=== PATIENT | female | born 2000 | race Caucasian/White ===

== ENCOUNTER 2019-04-27 22:45 | Emergency (ER) | payer OTHER ==
[2019-04-27] MEDS ORDERED: Lidocaine 2% VISCOUS* 15 ML UDC PO ONE (23:18)
[2019-04-27] MEDS ORDERED: Acetaminophen TAB* 325 MG PO ONE (23:30)
[2019-04-27 23:40] LABS: Rapid Strep Molecular Negative (Negative)
[2019-04-27 23:49] LABS: Influenza A Molecular NEGATIVE (Negative); Influenza B Molecular NEGATIVE (Negative)
--- NOTE | 2019-04-28 00:21 | ED ---
Influenza-Like Illness - HPI Summary HPI Summary: Patient complains of fever, sore throat, body aches, headache, nausea, lower back pain 1 week. Seen at [facility] earlier in the week, tested positive for strep nongroup a, was not given antibiotics. Patient has been taking amoxicillin for the past 2 days that she had from a prior infection a year ago. Thus been taking Tamiflu for 1 day that she had from a year ago. Denies cough , SOB, CP, V/D, abdominal pain, change in urine, change in BM. Medical history is frequent strep throat. - History of Current Complaint Chief Complaint: EDFluSymptoms Time Seen by Provider: 04/27/19 23:16 Hx Obtained From: Patient Onset/Duration: Gradual Onset, Lasting Days Severity: Moderate Associated Signs & Symptoms: Fever, Myalgia, Sore Throat, Headache - Allergy/Home Medications Allergies/Adverse Reactions: Allergies Allergy/AdvReac Type Severity Reaction Status Date / Time clindamycin Allergy Vomiting Verified 04/27/19 22:48 PMH/Surg Hx/FS Hx/Imm Hx Endocrine/Hematology History: Denies: Hx Anticoagulant Therapy Cardiovascular History: Denies: Hx Pacemaker/ICD History: Denies: Hx Dialysis Sensory History: Denies: Hx Eye Prosthesis Opthamlomology History: Denies: Hx Legally Blind EENT History: Denies: Hx Deafness Neurological History: Denies: Hx Dementia Infectious Disease History: No Infectious Disease History: Denies: Traveled Outside the [place] in Last 30 Days - Family History Known Family History: Positive: Non-Contributory - Social History Alcohol Use: Occasionally Substance Use Type: Reports: None Smoking Status (MU): Never Smoked Tobacco Review of Systems Positive: Fever Eyes: Negative Positive: Sore Throat Cardiovascular: Negative Respiratory: Negative Gastrointestinal: Negative Genitourinary: Negative Positive: Myalgia Skin: Negative Neurological: Negative Psychological: Normal All Other Systems Reviewed And Are Negative: Yes Physical Exam Triage Information Reviewed: Yes Vital Signs On Initial Exam: Initial Vitals Temp Pulse Resp BP Pulse Ox 102.5 F 125 18 130/87 99 04/27/19 22:49 04/27/19 22:49 04/27/19 22:49 04/27/19 22:49 04/27/19 22:49 Vital Signs Reviewed: Yes Appearance: Positive: Well-Appearing Skin: Positive: Warm Head/Face: Positive: Normal Head/Face Inspection Eyes: Positive: Normal ENT: Positive: Pharyngeal erythema, TMs normal, Tonsillar swelling, Uvula midline. Negative: Tonsillar exudate, Trismus, Muffled voice, Hoarse voice Neck: Positive: Supple Respiratory/Lung Sounds: Positive: Clear to Auscultation Cardiovascular: Positive: Normal Abdomen Description: Positive: Nontender Musculoskeletal: Positive: Normal Neurological: Positive: Normal Psychiatric: Positive: Normal AVPU Assessment: Alert - [place] Coma Scale Best Eye Response: 4 - Spontaneous Best Motor Response: 6 - Obeys Commands Best Verbal Response: 5 - Oriented Coma Scale Total: 15 Procedures - Sedation Patient Received Moderate/Deep Sedation with Procedure: No Diagnostics - Vital Signs Vital Signs Temp Pulse Resp BP Pulse Ox 04/27/19 22:49 102.5 F 125 18 130/87 99 - Laboratory Lab Results: Lab Results 04/27/19 04/27/19 Range/Units 23:25 23:25 Influenza A (Rapid) Negative (Negative) Influenza B (Rapid) Negative (Negative) Group A Strep Rapid Negative (Negative) Result Diagrams: 04/28/19 00:00 04/28/19 00:00 Lab Statement: Any lab studies that have been ordered have been reviewed, and results considered in the medical decision making process. Flu Symptom Course/Dx - Course Course Of Treatment: Patient complains of fever, sore throat, body aches, headache, nausea, lower back pain 1 week. Seen at [facility] earlier in the week, tested positive for strep nongroup a, was not given antibiotics. Patient has been taking amoxicillin for the past 2 days that she had from a prior infection a year ago. Thus been taking Tamiflu for 1 day that she had from a year ago. Denies cough, SOB, CP, V/D, abdominal pain, change in urine, change in BM. Medical history is frequent strep throat. Initial temperature 102. Heart rate 125. Both resolved with antipyretics. Vital signs otherwise unremarkable. CRP 84. [place] negative. Flu negative. Strep a negative. Symptoms improved with lidocaine. Rx for lidocaine and Augmentin. - Diagnoses Provider Diagnoses: Pharyngitis Discharge ED - Sign-Out/Discharge Documenting (check all that apply): Patient Departure - Discharge Plan Condition: Stable Disposition: HOME Prescriptions: Amoxicillin/Clavulanate TAB* [Augmentin TAB 875*] 875 mg PO BID #20 tab Lidocaine 2% VISCOUS* [Xylocaine 2% Viscous*] 15 ml SWISH SPIT Q6H PRN #1 btl PRN Reason: Pain - Moderate Patient Education Materials: Pharyngitis (ED) Referrals: No Primary Care Phys,NOPCP [Primary Care Provider] - Additional Instructions: Alternate ibuprofen 400 mg with Tylenol 650 mg every 3 hours for fever control and discomfort. Drink plenty of fluids to maintain hydration. Take antibiotics as directed. Use lidocaine as directed for sore throat pain. Follow-up with primary care. Return to the ED for any worsening symptoms. - Billing Disposition and Condition Condition: STABLE Disposition: Home
[2019-04-28 00:27] LABS: ABS Monocytes 1.1 10^3/ul (0-0.8); ABS Neutrophils 5.7 10^3/ul (1.5-7.7); Hematocrit 39 % (35-47); Hemoglobin 13.1 g/dL (12.0-16.0); Lymphocyte % 13.3 %; Mean Corpuscular HGB Conc 34 g/dL (31-36); Mean Corpuscular Hemoglobin 31 pg (27-31); Mean Corpuscular Volume 91 fL (80-97); Mean Platelet Volume 7.3 fL (7.4-10.4); Platelet Count 260 10^3/uL (150-450); Red Blood Count 4.27 10^6 /uL (3.70-4.87); Red Cell Distribution Width 13 % (10-15); White Blood Count 7.9 10^3/uL (3.5-10.8)
[2019-04-28 00:47] LABS: ALT 12 U/L (7-52); AST 17 U/L (13-39); Albumin 3.9 g/dL (3.2-5.2); Albumin/Globulin Ratio 1.2 (1-3); Alkaline Phosphatase 45 U/L (34-104); Anion Gap 8 mmol/L (2-11); BUN/Creatinine Ratio 8.2 (8-20); Blood Urea Nitrogen 8 mg/dL (6-24); C Reactive Protein 84.48 mg/L (<8.01); CO2 Carbon Dioxide 23 mmol/L (22-32); Calcium 8.6 mg/dL (8.6-10.3); Chloride 102 mmol/L (101-111); EGFR African American 89.5 (>60); Globulin 3.2 g/dL (2-4); Glucose 97 mg/dL (70-100); Potassium 3.4 mmol/L (3.5-5.0); Sodium 133 mmol/L (135-145); Total Protein 7.1 g/dL (6.4-8.9)
[2019-04-28 00:53] LABS: HCG Pregnancy < 0.60 mIU/mL
[2019-04-28] MEDS ORDERED: Amoxicillin/Clavulanate TAB* 875 MG PO ONE (00:55)
[2019-04-28 01:20] LABS: Urine Appearance Clear; Urine Bacteria Absent (Absent); Urine Bilirubin Negative (Negative); Urine Blood 1+ (Negative); Urine Color Colorless; Urine Glucose Negative (Negative); Urine Ketones Negative (Negative); Urine Nitrite Negative (Negative); Urine Protein Negative (Negative); Urine Red Blood Cell Trace(0-2/hpf) (Absent); Urine Specific Gravity 1.001 (1.010-1.030); Urine Squamous Epithelial Cell Present (Absent); Urine Urobilinogen Negative (Negative); Urine White Blood Cell Absent (Absent)
[2019-04-28 01:35] VITALS: BP 110/67
== END 2019-04-28 01:35 | disposition home or self-care (01) ==
LOC: ED 22:45
DX: J02.9 Acute pharyngitis, unspecified (principal); R50.9 Fever, unspecified; R51 Headache; R11.0 Nausea; M54.2 Cervicalgia
CPT/HCPCS: 36415; 80053; 81003; 81015; 83605; 84702; 85025; 86140; 86308; 87040; 87651; 99283; A9270-GY